=== PATIENT | male | born 1945 | race Caucasian/White ===

== ENCOUNTER 2022-05-11 06:00 | Outpatient (RCR) | payer MEDICARE, SELFPAY | END 2022-06-01 23:59 | disposition home or self-care (01) | LOC: TPT 06:00 | PROVIDERS: PCP Nurse Practitioner Family | DX: Z96.652 Presence of left artificial knee joint (principal) | CPT/HCPCS: 97110; 97162 ==

== ENCOUNTER 2022-06-02 06:00 | Outpatient (RCR) | payer MEDICARE, SELFPAY | END 2022-07-02 23:59 | disposition home or self-care (01) | LOC: TPT 06:00 | PROVIDERS: PCP Nurse Practitioner Family; Visit Provider Orthopaedic Surgery | DX: Z96.652 Presence of left artificial knee joint (principal); Z47.33 Aftercare following explantation of knee joint prosthesis | CPT/HCPCS: 97110; 97140 ==

== ENCOUNTER 2022-07-03 06:00 | Outpatient (RCR) | payer MEDICARE, SELFPAY | END 2022-08-02 23:59 | disposition home or self-care (01) | LOC: TPT 06:00 | PROVIDERS: PCP Nurse Practitioner Family; Visit Provider Orthopaedic Surgery | DX: Z47.33 Aftercare following explantation of knee joint prosthesis (principal); Z96.652 Presence of left artificial knee joint | CPT/HCPCS: 97110 ==

== ENCOUNTER 2022-08-03 06:00 | Outpatient (RCR) | payer MEDICARE, SELFPAY | END 2022-08-09 23:59 | disposition home or self-care (01) | LOC: TPT 06:00 | PROVIDERS: PCP Nurse Practitioner Family; Visit Provider Orthopaedic Surgery | DX: Z47.33 Aftercare following explantation of knee joint prosthesis (principal); Z96.652 Presence of left artificial knee joint | CPT/HCPCS: 97110 ==

== ENCOUNTER → 2023-03-27 08:14 | Outpatient (BNVA) | payer MEDICARE, SELFPAY | PROVIDERS: PCP Nurse Practitioner Family; Referring Provider Nurse Practitioner Family; Visit Provider Specialist | DX: F03.90 Unspecified dementia, unspecified severity, without behavioral disturbance, psychotic disturbance, mood disturbance, and anxiety (principal); H93.13 Tinnitus, bilateral | CPT/HCPCS: 36415; 82607; 96116; 99204; 99205 ==

== ENCOUNTER → 2023-03-29 10:59 | Outpatient (BNVA) | payer MEDICARE, SELFPAY | PROVIDERS: PCP Nurse Practitioner Family; Visit Provider Otolaryngology | DX: H65.01 Acute serous otitis media, right ear (principal); H69.91 Unspecified Eustachian tube disorder, right ear; H93.13 Tinnitus, bilateral; J31.0 Chronic rhinitis; H91.93 Unspecified hearing loss, bilateral | CPT/HCPCS: 99203 ==

== ENCOUNTER 2023-05-09 15:59 | Outpatient (CLI) | payer MEDICARE, SELFPAY ==
--- NOTE | 2023-05-09 16:00 | MR_ITS ---
WS: [id number] MRI HEAD WITHOUT CONTRAST TECHNIQUE: Sagittal T1, T2 axial, T2 axial FLAIR, axial and coronal T1 images, axial susceptibility w eighted imaging, axial diffusion weighted images, and coronal T2 images were obtained. CLINICAL INFORMATION: F03.90 - Unspecified dementia, unspecified severity, with... COMPARISON: None. FINDINGS: No evidence of restricted diffusion to suggest acute ischemia. Ventricular system and basal cisterns are patent. Mild small vessel changes. Moderate parenchymal volume loss. This is worse in the parietal lobes. Sma ll vessel changes in the dia. Tiny chronic lacunar infarct or prominent perivascular space RIGHT mid brain. Mild posterior fossa and brainstem atrophy. Normal posterior fossa. Normal vascular flow voids at the skull base. No extra-axial fluid collection s. No evidence of mass or mass effect. Paranasal sinuses and mastoid air cells are well aerated. Norm al posterior nasopharynx and parapharyngeal fat. Normal optic chiasm and pituitary infundibulum. Mild symmetric atrophy temporal lobes and hippocampal formations. IMPRESSION: 1. No evidence of restricted diffusion to suggest acute ischemia. 2. Mild small vessel changes with moderate parenchymal volume loss. Parenchymal volume loss worse in volving the bilateral parietal lobes. 3. Mild symmetric atrophy temporal lobes and hippocampal formations. 4. Mild posterior fossa and brainstem atrophy. 5. Tiny chronic lacunar infarct or prominent perivascular space RIGHT midbrain
== END 2023-05-09 16:00 | disposition home or self-care (01) ==
PROVIDERS: PCP Nurse Practitioner Family; Visit Provider Specialist
DX: F03.90 Unspecified dementia, unspecified severity, without behavioral disturbance, psychotic disturbance, mood disturbance, and anxiety (principal)
CPT/HCPCS: 70551

== ENCOUNTER 2023-06-15 11:31 | Outpatient (CLI) | payer MEDICARE, SELFPAY ==
[2023-06-15 11:49] LABS: Basophils % 0.9 %; Eosinophils # 0.1 10^3/uL (0.0-0.8); Eosinophils % 2.3 %; Hematocrit 36.9 % (37-53); Lymphocytes # 1.6 10^3/uL (0.8-4.8); Lymphocytes % 36.8 %; Mean Corpuscular HGB Conc 32.5 g/dL (30-55); Mean Corpuscular Hemoglobin 31.7 pg (27-33); Mean Corpuscular Volume 97.4 fl (82-101); Mean Platelet Volume 9.2 fL (7.4-10.4); Monocytes # 0.5 10^3/uL (0.2-0.9); Neutrophils # 2.13 10^3/uL (1.8-7.7); Neutrophils % 48.8 %; Nucleated Red Blood Cells % 0 %; Platelet Count 261 10^3/cmm (157-399); Red Blood Count 3.79 10^6/uL (3.85-5.65); Red Cell Distribution Width 12.6 % (12.1-15.1); White Blood Count 4.37 10^3/uL (3.29-11.43)
[2023-06-15 12:01] LABS: Anion Gap 11.1 (5-19); Blood Urea Nitrogen 18 mg/dL (8-23); Calcium 9.2 mg/dL (8.5-10.5); Carbon Dioxide 29 mmol/L (22-29); Chloride 98 mmol/L (98-107); Glucose 113 mg/dL (65-115); Osmolality Calculated 281 mOsm/kg (285-295); Potassium 4.1 mmol/L (3.5-5.1); Sodium 134 mmol/L (136-145)
== END 2023-06-15 11:32 | disposition home or self-care (01) ==
LOC: LAB 11:32
PROVIDERS: PCP Nurse Practitioner Family; Visit Provider Internal Medicine Clinical Cardiac Electrophysiology
DX: I49.5 Sick sinus syndrome (principal)
CPT/HCPCS: 36415; 80048; 85025

== ENCOUNTER → 2023-06-20 11:48 | Outpatient (BNVA) | payer MEDICARE, SELFPAY | PROVIDERS: PCP Nurse Practitioner Family; Visit Provider Specialist | DX: G31.84 Mild cognitive impairment of uncertain or unknown etiology (principal) | CPT/HCPCS: 99214 ==

== ENCOUNTER → 2023-08-09 11:24 | Outpatient (BNVA) | payer MEDICARE, SELFPAY | PROVIDERS: PCP Nurse Practitioner Family; Visit Provider Otolaryngology | DX: H90.6 Mixed conductive and sensorineural hearing loss, bilateral (principal); H93.13 Tinnitus, bilateral; H69.91 Unspecified Eustachian tube disorder, right ear; H65.01 Acute serous otitis media, right ear; J31.0 Chronic rhinitis | CPT/HCPCS: 99213 ==

== ENCOUNTER 2023-10-04 20:27 | Emergency (ER) | payer MEDICARE, SELFPAY ==
[2023-10-04 20:27] VITALS: BP 102/58; PULSE 60; RESP 18; TEMP 35.8; O2SAT 98; BMI 29.8
--- NOTE | 2023-10-04 20:32 | ECG_ITS ---
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 Measurements Intervals Polo Rate: 60 P: 207 MA: 247 QRS: 10 QRSD: 109 T: 22 QT: 445 QTc: 445 Interpretive Statements ELECTRONIC ATRIAL PACEMAKER POSSIBLE LATERAL MYOCARDIAL INFARCTION , PROBABLY OLD [30 ms Q WAVE IN I/aVL/V5/V6] Compared to ECG 10/06/2015 10:39:51 Myocardial infarct finding now present Sinus rhythm no longer present Electronically Signed On 10-04-2023 22:10:50 CDT by Mahesh Medina M.D. [id number]
--- NOTE | 2023-10-04 20:42 | ED_ITS ---
HPI - Syncope 2 General: Chief Complaint: Syncope Stated Complaint: syncope Time Seen by Provider: 10/04/23 20:37 Source: patient and EMS Mode of arrival: EMS Limitations: no limitations History of Present Illness: 78-year-old male states he felt like he had overdone it today. He states he was doing yard work then a peng to [employer] and ate a meal real quick he states that he started feeling lightheaded and did have a syncopal event he states for seconds. He denies any chest pain or headache before or after the event he states he feels back to baseline currently and has no complaints at this time he had no vomiting or diarrhea. Associated symptoms: Deny abdominal pain, chest pain, fever(s), headache(s) or nausea Review of Systems 2 Const: Denies: fever(s), chills, body aches or change in appetite ENMT: Denies: throat pain or dental pain Card: Reports: syncope; Denies: chest pain Resp: Denies: dyspnea GI: Denies: abdominal pain, nausea, vomiting or diarrhea Musc: Denies: neck pain or back pain Skin/Breast: Denies: rash Neuro: Denies: headache(s) PFSH ED 2 PFSH: Medical History Elevated C-reactive protein (CRP) Positive SHARI (antinuclear antibody) Surgical History History of knee replacement History of shoulder surgery Family History Other Cancer Heart attack Social History Smoking and tobacco/nicotine status: never used tobacco/nicotine Alcohol intake: never Physical Exam 2 Const: COMMON NORMALS: no acute distress, patient oriented x3 and healthy appearing HENMT: COMMON NORMALS: normocephalic and atraumatic HEAD & SCALP: n ormocephalic and atraumatic Eye: COMMON NORMALS: Equal, round and reactive pupils present and EOMs intact bilaterally PUPIL: Yes Equal, round and reactive pupils present Neck/C-Spine: COMMON NORMALS: full ROM and supple Chest: COMMONS NORMALS: normal inspection of the chest and normal palpation of entire chest wall Resp: COMMON NORMALS: normal respiratory effort, No retractions, No use of accessory muscles and clear to auscultation bilaterally AUSCULTATION: clear to auscultation bilaterally Cardio: COMMON NORMALS: regular rate, regular rhythm and No murmurs present (Cardio) RATE: regular rate RHYTHM: regular rhythm GI: COMMON NORMALS: Normal to inspection, nondistended, normoactive bowel sounds present, Soft to palpation, non-tender and no masses PALPATION: Yes Soft to palpation Extremity: COMMON NORMALS: normal to inspection and full ROM Neuro: COMMON NORMALS: patient oriented x3, moves all extremities and no focal motor deficits Psych: COMMON NORMALS: mental status grossly normal, Normal thought process present and cooperative THOUGHT PROCESS: Normal thought process present Skin: COMMON NORMALS: no rashes or lesions noted and no wounds GENERAL SKIN EXAM: no rashes or lesions noted Course 2 Vital Signs: Vital signs: Vital Signs Temperature 96.4 F L 10/04/23 20:27 Pulse Rate 60 10/04/23 20:27 Respiratory Rate 18 10/04/23 20:27 Blood Pressure 102/58 10/04/23 20:27 Pulse Oximetry 98 10/04/23 20:27 Oxygen Delivery Me thod Room Air 10/04/23 20:27 MDM - Syncope Medical Decision Making Patient presents here with a syncopal event is likely a vagal event he feels much improved. Been well-appearing here with normal vitals blood works normal he is stable for discharge he is to follow-up with his PCP and return if worsening he understands agrees to plan. Medical Records I reviewed the patient's medical records. Lab Data I reviewed the patient's lab results. 10/04/23 20:47 10/04/23 20:47 Laboratory Results WBC 5.51 10^3/uL (3.29-11.43) 10/04/23 20:47 RBC 3.66 10^6/uL (3.85-5.65) L 10/04/23 20:47 Hgb 11.70 g/dL (11.27-16.99) 10/04/23 20:47 Hct 34.3 % (37-53) L 10/04/23 20:47 MCV 93.7 fl (82-101) 10/04/23 20:47 MCH 32.0 pg (27-33) 10/04/23 20:47 MCHC 34.1 g/dL (30-55) 10/04/23 20:47 RDW 11.9 % (12.1-15.1) L 10/04/23 20:47 Plt Count 242 10^3/cmm (157-399) 10/04/23 20:47 MPV 8.8 fL (7.4-10.4) 10/04/23 20:47 Neut % (Auto) 70.6 % 10/04/23 20:47 Lymph % (Auto) 18.9 % 10/04/23 20:47 [place] % (Auto) 8.9 % 10/04/23 20:47 Eos % (Auto) 0.5 % 10/04/23 20:47 Baso % (Auto) 0.7 % 10/04/23 20:47 Neut # (Auto) 3.89 10^3/uL (1.8-7.7) 10/04/23 20:47 Lymph # (Auto) 1.0 10^3/uL (0.8-4.8) 10/04/23 20:47 [place] # (Auto) 0.5 10^3/uL (0.2-0.9) 10/04/23 20:47 Eos # (Auto) 0.0 10^3/uL (0.0-0.8) 10/04/23 20:47 Baso # (Auto) 0.0 10^3/uL (0.0-0.1) 10/04/23 20:47 Nucleated RBC % (auto) 0 % 10/04/23 20:47 Nucleated RBCs # 0.0 /100WBC 10/04/23 20:47 Sodium 131 mmol/L (136-145) L 10/04/23 20:47 Potassium 3.6 mmol/L (3.5-5.1) 10/04/23 20:47 Chloride 94 mmol/L (98-107) L 10/04/23 20:47 Carbon Dioxide 26 mmol/L (22-29) 10/04/23 20:47 Anion Gap 14.6 (5-19) 10/04/23 20:47 BUN 19 mg/dL (8-23) 10/04/23 20:47 Creatinine 1.3 mg/dL (0.7-1.2) H 10/04/23 20:47 GFR Calculation Not Reportable 10/04/23 20:47 Glucose 117 mg/dL (65-115) H 10/04/23 20:47 Calculated Osmolality 275 mOsm/kg (285-295) L 10/04/23 20:47 Calcium 8.8 mg/dL (8.5-10.5) 10/04/23 20:47 Total Bilirubin 0.4 mg/dL (0.15-1.2) 10/04/23 20:47 AST 18 U/L (0-40) 10/04/23 20:47 ALT < 5 U/L (0-41) 10/04/23 20:47 Alkaline Phosphatase 104 U/L (40-130) 10/04/23 20:47 Total Protein 7.3 g/dL (6.6-8.7) 10/04/23 20:47 Albumin 4.2 g/dL (3.5-5.2) 10/04/23 20:47 Globulin 3.1 g/dL (1.3-4.6) 10/04/23 20:47 No radiology studies performed this visit EKG Data EKG 1: I personally reviewed and interpreted this EKG as follows: EKG interpretation date: 10/04/23 EKG interpretation time: 20:32 Interpretation: paced rhythm hr [address] or t wave abnormalities qrs 109 qtc 445 Discharge Plan Discharge Patient Disposition: Home Clinical Impression: Syncope Condition: Stable Prescriptions: No Action donepezil [Aricept] 10 mg tablet 10 mg PO DAILY pantoprazole [Protonix] 40 mg tablet,delayed release (DR/EC) 40 mg PO DAILY furosemide 20 mg tablet 20 mg PO DAILY simvastatin 20 mg tablet 20 mg PO DAILY lorazepam 1 mg tablet 1 mg PO BID PRN tizanidine 4 mg capsule 4 mg PO TID PRN tramadol 50 mg tablet 50 mg PO Q6H PRN ropinirole 1 mg tablet 1 mg PO DAILY olmesartan 40 mg tablet 40 mg PO DAILY tamsulosin [Flomax] 0.4 mg capsule 0.4 mg PO DAILY memantine [Namenda] 5 mg tablet 5 mg PO BID levothyroxine 50 mcg capsule 50 mcg PO DAILY fluticasone propionate 50 mcg/actuation spray,suspension 2 spray intranasal DAILY 360 Days Qty: 16 11RF Rx Instructions: administer into each nostril Discharge Orders: Discharge ED (Routine); Ordered 10/04/23 Ordered By: Beatrice Rubin Referrals: Valderraam,ZI Dodd [Primary Care Provider] - Discharge Diet: Advance as tolerated Discharge Activity: Resume usual activity Patient Instructions: Syncope (ED) Coding Level of Care Code 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
[2023-10-04] MEDS: sodium chloride 0.9% 1,000 ML 999 ML IV (20:51)
[2023-10-04 20:53] LABS: Basophils % 0.7 %; Eosinophils % 0.5 %; Hematocrit 34.3 % (37-53); Lymphocytes % 18.9 %; Mean Corpuscular HGB Conc 34.1 g/dL (30-55); Mean Corpuscular Volume 93.7 fl (82-101); Mean Platelet Volume 8.8 fL (7.4-10.4); Monocytes # 0.5 10^3/uL (0.2-0.9); Monocytes % 8.9 %; Neutrophils # 3.89 10^3/uL (1.8-7.7); Neutrophils % 70.6 %; Nucleated Red Blood Cells % 0 %; Platelet Count 242 10^3/cmm (157-399); Red Blood Count 3.66 10^6/uL (3.85-5.65); Red Cell Distribution Width 11.9 % (12.1-15.1); White Blood Count 5.51 10^3/uL (3.29-11.43)
[2023-10-04 21:13] LABS: Alanine Aminotransferase < 5 U/L (0-41); Albumin Level 4.2 g/dL (3.5-5.2); Alkaline Phosphatase 104 U/L (40-130); Anion Gap 14.6 (5-19); Aspartate Amino Transferase 18 U/L (0-40); Blood Urea Nitrogen 19 mg/dL (8-23); Calcium 8.8 mg/dL (8.5-10.5); Carbon Dioxide 26 mmol/L (22-29); Chloride 94 mmol/L (98-107); Creatinine Clr Calc Pharmacy 57.4411; Globulin 3.1 g/dL (1.3-4.6); Glucose 117 mg/dL (65-115); Osmolality Calculated 275 mOsm/kg (285-295); Potassium 3.6 mmol/L (3.5-5.1); Sodium 131 mmol/L (136-145); Total Bilirubin 0.4 mg/dL (0.15-1.2); Total Protein 7.3 g/dL (6.6-8.7)
[2023-10-04 21:26] VITALS: BP 113/73; PULSE 60; RESP 17; O2SAT 95
[2023-10-04 21:59] VITALS: BP 125/76; PULSE 63; RESP 14; O2SAT 98
== END 2023-10-04 21:50 | disposition home or self-care (01) ==
PROVIDERS: Emergency Provider Emergency Medicine; PCP Nurse Practitioner Family
DX: R55 Syncope and collapse (principal)
CPT/HCPCS: 80053; 85025; 93005; 96360; 99284; J7030

== ENCOUNTER → 2024-01-02 08:27 | Outpatient (BNVA) | payer MEDICARE, SELFPAY | PROVIDERS: PCP Nurse Practitioner Family; Visit Provider Specialist | DX: G31.84 Mild cognitive impairment of uncertain or unknown etiology (principal) | CPT/HCPCS: 99213 ==